=== PATIENT | female | born 1960 | race Caucasian/White ===

== ENCOUNTER 2018-05-15 12:31 | Outpatient (CLI) | payer BC ==
--- NOTE | 2018-05-15 13:43 | ULT ---
RIGHT LOWER EXTREMITY VENOUS DOPPLER WITH SPECTRAL ANALYSIS AND COLOR FLOW EVALUATION: Date: 05-15-18 History: Right lower extremity pain and burning and tingling. History of prior DVT. Comparison: None available. FINDINGS: Grayscale, color flow, doppler evaluation and spectral analysis of the right lower extremity venous s tructures is performed with 2D imaging. The right lower extremity common femoral, superficial femoral , popliteal, posterior tibial, most proximal greater saphenous and profunda femoral veins are imaged. The distal right lower extremity superficial femoral vein is not well seen on grayscale imaging due t o depth of the vein related to the skin surface. However, there is flow demonstrated within this vein on color flow evaluation. There is otherwise normal lumen compressibility, flow, and augmentation throughout the visualized rig ht lower extremity deep venous structures. IMPRESSION: Limited evaluation of the distal right lower extremity superficial femoral vein as described above. T here is no occlusive DVT at this level, but a nonocclusive DVT could not be excluded given limited ev aluation of the vein on grayscale imaging. There is otherwise no evidence of a DVT involving the marge ining visualized deep venous structures right lower extremity. POS: [facility]
== END 2018-05-15 12:32 | disposition home or self-care (01) ==
LOC: ULT 12:31
PROVIDERS: ATTEND Family Medicine
DX: M79.601 Pain in right arm (principal); Z86.718 Personal history of other venous thrombosis and embolism